=== PATIENT | female | born 1940 ===

== ENCOUNTER 2016-10-15 07:58 | Day surgery (SDC) | payer MEDICARE, MEDICAID ==
--- NOTE | 2016-10-15 07:54 | CP.SDSHP ---
Same Day Surgery H & P - History Proposed Procedure: colonoscopy - Previous Medical/Surgical History Cardiac: Hypertension - Allergies Allergies: Allergies No Known Allergies Allergy (Verified 08/24/13 10:03) - Date & Time Date: 10/15/16 Time: 07:54 Short Stay Discharge - Short Stay Discharge Admitting Diagnosis/Reason for Visit: PERSONAL HISTORY OF COLONIC POLYPS Disposition: HOME/ ROUTINE
[2016-10-15 08:38] VITALS: BMI 23.6
[2016-10-15] MEDS ORDERED: Propofol 10 mg/ml Inj (20 ML) ONE ×2 (09:12)
[2016-10-15 10:16] VITALS: TEMP 97.8
[2016-10-15 10:18] VITALS: O2SAT 100
[2016-10-15 10:24] VITALS: PULSE 49
[2016-10-15 10:48] VITALS: BP 121/66; RESP 19
== END 2016-10-15 11:03 | disposition home or self-care (01) ==
LOC: C.ENDO 07:58
PROVIDERS: ATTEND Colon & Rectal Surgery
DX: K62.1 Rectal polyp (principal); K57.90 Diverticulosis of intestine, part unspecified, without perforation or abscess without bleeding
CPT/HCPCS: 45385; 88305; J2704